=== PATIENT | female | born 1945 | race Caucasian/White ===

== ENCOUNTER → 2016-09-02 | Outpatient (CLI) | payer MEDICARE, OTHER ==
[~2016-09-02] MED LIST: ANTIVERT 25MG25 MG PO; APRESOLINE 10MG10 MG PO; BACTRIM DS 8001 TAB; BACTRIM DS 8001 TAB PO; CEPHALEXIN500 M1 PO; DESONATE TP; DOXYCYCLINE 50M50 MG PO; MIRAPEX 0.125MG; MIRAPEX 1MG; MIRAPEX0.5 MG PO; NO HOME MEDICATIONS; NORCO 325 MG-51 TAB PO; PRILOSEC 20MG20 MG; PRILOSEC 20MG20 MG PO; PYRIDIUM 100MG100 MG PO; ROSACEA CREAM TOP; SINGULAIR 110 MG/TAB PO
== END ==
LOC: MC.RAD 13:00
DX: D24.2 Benign neoplasm of left breast (principal); D24.1 Benign neoplasm of right breast

== ENCOUNTER 2019-07-25 10:00 | Outpatient (RCR) | payer MEDICARE, OTHER | END 2019-10-23 | disposition home or self-care (01) | LOC: WSST | DX: R13.13 Dysphagia, pharyngeal phase (principal) ==

== ENCOUNTER → 2019-08-02 | Outpatient (CLI) | payer MEDICARE, OTHER | LOC: COL.RAD 14:10 | DX: R13.13 Dysphagia, pharyngeal phase (principal); R49.0 Dysphonia ==

== ENCOUNTER → 2020-05-30 | Outpatient (CLI) | payer MEDICARE, OTHER | LOC: COL.RAD 13:41 | DX: R14.0 Abdominal distension (gaseous) (principal); Z87.39 Personal history of other diseases of the musculoskeletal system and connective tissue ==

== ENCOUNTER 2023-11-24 14:15 | Outpatient (RCR) | payer MEDICARE, OTHER ==
[2006-02-23 08:50] VITALS: TEMP 98.2
[~2023-11-24 14:15] MED LIST changes: +NEURONTIN300 MG/CAP PO; +ZOVIRAX800 MG PO
== END 2023-11-27 ==
LOC: WSPT
DX: M76.821 Posterior tibial tendinitis, right leg (principal); M76.822 Posterior tibial tendinitis, left leg

== ENCOUNTER → 2024-03-24 | Outpatient (CLI) | payer MEDICARE, OTHER ==
[2006-02-23 08:50] VITALS: TEMP 98.2
[~2024-03-24] MED LIST changes: +Iohexol 300 - 100 ML VIAL IV ONE; +NS 100 ML IV SCH
== END ==
LOC: COL.RAD 09:21
DX: J84.9 Interstitial pulmonary disease, unspecified (principal); K22.89 Other specified disease of esophagus; M34.9 Systemic sclerosis, unspecified; J32.9 Chronic sinusitis, unspecified
CPT/HCPCS: Q9967